=== PATIENT | male | born 1995 | race American Indian/Alaskan Native ===

== ENCOUNTER 2018-12-01 09:07 | Emergency (ER) | payer OTHER, SELFPAY ==
[2018-12-01] MEDS ORDERED: LIDOCAINE 1% W/EPI 1:100,000 MDV 50 ML VIAL ONE (10:08)
--- NOTE | 2018-12-01 10:41 | EDPHYS ---
Physician Documentation [facility] Name: Bob Rowan Age: 23 yrs Sex: Male : 1995 Arrival Date: 12/01/2018 Time: 09:10 Bed 16 Private MD: ED Physician Dillon Quiñones HPI: 12/01 10:23 This 23 yrs old Male presents to ER via Ambulatory with complaints of Abscess. gs 10:23 The patient presents with an abscess of the chin, The patient presents with cellulitis gs of the chin. 10:28 Description: The affected area is approximately 3 cm(s), confluent, draining, gs erythematous, fluctuant. Onset: The symptoms/episode began/occurred gradually, 2 day(s) ago. Possible cause(s): unknown. Associated signs and symptoms: Pertinent negatives: fever. Severity of symptoms: At their worst the symptoms were severe, in the emergency department the symptoms are unchanged. The patient has experienced similar episodes in the past, a few times, but today's symptoms are worse. The patient has been recently seen by a physician: suman yesterday, 1 day(s) ago. Historical: - Allergies: 09:45 No Known Allergies; iw - Home Meds: 09:45 Genvoya [phone] mg oral tab 1 tab once daily [Active]; iw - PMHx: 09:45 HIV; iw - PSHx: 09:45 Tonsillectomy; iw - Immunization history:: Adult Immunizations up to date. - Social history:: Smoking status: Patient/guardian denies using tobacco. - Ebola Screening: : Patient negative for fever greater than or equal to 101.5 degrees Fahrenheit, and additional compatible Ebola Virus Disease symptoms. ROS: 10:28 All other systems are negative. gs Exam: 10:28 Eyes: Pupils equal round and reactive to light, extra-ocular motions intact. Lids and gs lashes normal. Conjunctiva and sclera are non-icteric and not injected. Cornea within normal limits. Periorbital areas with no swelling, redness, or edema. ENT: Nares patent. No nasal discharge, no septal abnormalities noted. Tympanic membranes are normal and external auditory canals are clear. Oropharynx with no redness, swelling, or masses, exudates, or evidence of obstruction, uvula midline. Mucous membranes moist. Neck: Trachea midline, no thyromegaly or masses palpated, and no cervical lymphadenopathy. Supple, full range of motion without nuchal rigidity, or vertebral point tenderness. No Meningismus. Chest/axilla: Normal chest wall appearance and motion. Nontender with no deformity. No lesions are appreciated. Cardiovascular: Regular rate and rhythm with a normal S1 and S2. No gallops, murmurs, or rubs. Normal PMI, no JVD. No pulse deficits. Respiratory: Lungs have equal breath sounds bilaterally, clear to auscultation and percussion. No rales, rhonchi or wheezes noted. No increased work of breathing, no retractions or nasal flaring. Abdomen/GI: Soft, non-tender, with normal bowel sounds. No distension or tympany. No guarding or rebound. No evidence of tenderness throughout. Back: No spinal tenderness. No costovertebral tenderness. Full range of motion. MS/ Extremity: Pulses equal, no cyanosis. Neurovascular intact. Full, normal range of motion. Neuro: Awake and alert, GCS 15, oriented to person, place, time, and situation. Cranial nerves II-XII grossly intact. Motor strength 5/5 in all extremities. Sensory grossly intact. Cerebellar exam normal. Normal gait. 10:28 Constitutional: The patient appears alert, awake. 10:28 Head/face: Noted is erythema, that is moderate, swelling, tenderness, of the chin, ABSCESS. 10:28 Skin: abscess, that is small, of the chin, with drainage, with fluctuance, with induration, with surrounding cellulitis. Vital Signs: 09:43 BP 125 / 86; Pulse 97; Resp 16; Temp 98.7(O); Pulse Ox 100% on R/A; Weight 68.04 kg; iw Height 5 ft. 9 in. (175.26 cm); Pain 5/10; 10:43 BP 129 / 90; Pulse 94; Resp 17; Temp 98.8; Pulse Ox 100% on R/A; Pain 4/10; rb1 09:43 Body Mass Index 22.15 (68.04 kg, 175.26 cm) iw Procedures: 10:28 I \T\ D: Incision and drainage was performed for an abscess of the chin Prepped with gs Betadine, Anesthetized with 3 ml's 1% Lidocaine w/ Epi. Incised with #15 blade. Drained small amount purulent fluid. serosanguinous fluid. Loculations removed. Packed with iodoform gauze, Dressing: sterile 4x4 gauze, the patient tolerated the procedure well. MDM: 09:43 Patient medically screened. gs 10:28 Differential diagnosis: abscess, cellulitis. Data reviewed: vital signs, nurses notes. gs Response to treatment: the patient's symptoms have mildly improved after treatment, and as a result, I will discharge patient. Administered Medications: 09:58 Drug: Lidocaine-Epinephrine -1%: (1:100,000) 3 ml Volume: 20 ml; Route: Infiltration; rb1 11:00 Drug: [employer] 10 mg-325 mg 1 tabs Route: PO; rb1 11:03 Follow up: Response: Medication administered at discharge. rb1 Disposition: 12/01/18 10:41 Discharged to Home. Impression: Cutaneous abscess of face. - Condition is Stable. - Discharge Instructions: Skin Abscess, Incision and Drainage. - Prescriptions for Tylenol- Codeine #4 300-60 mg Oral Tablet - take 1 tablet by ORAL route every 6 hours As needed; 10 tablet. - Work release form, Medication Reconciliation Form, Thank You Letter, Antibiotic Education, Prescription Opioid Use form. - Follow up: Private Physician; When: 1 - 2 days; Reason: Re-evaluation by your physician. Signatures: Marium Wakefield, RN RN iw Kristina Nunez RN RN rb1 Dillon Quiñones MD MD Corrections: (The following items were deleted from the chart) 11:06 10:41 12/01/2018 10:41 Discharged to Home. Impression: Cutaneous abscess of face. rb1 Condition is Stable. Forms are Medication Reconciliation Form, Thank You Letter, Antibiotic Education, Prescription Opioid Use. Follow up: Private Physician; When: 1 - 2 days; Reason: Re-evaluation by your physician. gs
--- NOTE | 2018-12-01 10:41 | ER ---
Nurse's Notes [facility] Name: Bob Rowan Age: 23 yrs Sex: Male : 1995 Arrival Date: 12/01/2018 Time: 09:10 Bed 16 Private MD: Diagnosis: Cutaneous abscess of face Presentation: 12/01 09:30 Presenting complaint: Patient states: white sores to chin X 1 week, thought they were iw just ingrown hairs, chin became hard and swollen yesterday, was seen at [facility] and was put on antibiotics (Bactrim) today swelling is worse and now has increasing redness. Transition of care: patient was not received from another setting of care. Onset of symptoms was November 24, 2018. Risk Assessment: Do you want to hurt yourself or someone else? Patient reports no desire to harm self or others. Initial Sepsis Screen: Does the patient meet any 2 criteria? No. Patient's initial sepsis screen is negative. Does the patient have a suspected source of infection? No. Patient's initial sepsis screen is negative. Care prior to arrival: None. 09:30 Method Of Arrival: Ambulatory iw 09:30 Acuity: VICTOR MANUEL 3 iw Historical: - Allergies: 09:45 No Known Allergies; iw - Home Meds: 09:45 Genvoya [phone] mg oral tab 1 tab once daily [Active]; iw - PMHx: 09:45 HIV; iw - PSHx: 09:45 Tonsillectomy; iw - Immunization history:: Adult Immunizations up to date. - Social history:: Smoking status: Patient/guardian denies using tobacco. - Ebola Screening: : Patient negative for fever greater than or equal to 101.5 degrees Fahrenheit, and additional compatible Ebola Virus Disease symptoms. Screenin:30 Abuse screen: Denies threats or abuse. Nutritional screening: No deficits noted. rb1 Tuberculosis screening: No symptoms or risk factors identified. Fall Risk None identified. Assessment: 09:30 General: Appears uncomfortable, Behavior is calm, cooperative, Denies fever. Pain: rb1 Complains of pain in chin Pain currently is 10 out of 10 on a pain scale. Neuro: Level of Consciousness is awake, alert, obeys commands, Oriented to person, place, time, situation. Cardiovascular: Capillary refill < 3 seconds is brisk in bilateral fingers. Respiratory: Airway is patent Respiratory effort is even, unlabored, Respiratory pattern is regular, symmetrical. GI: Reports nausea. : No signs and/or symptoms were reported regarding the genitourinary system. Derm: Skin is dry, Skin is normal, Skin temperature is warm. 10:30 Reassessment: Patient appears in no apparent distress at this time. Patient and/or rb1 family updated on plan of care and expected duration. Pain level reassessed. Patient is alert, oriented x 3, equal unlabored respirations, skin warm/dry/pink. Mother at bedside. Vital Signs: 09:43 BP 125 / 86; Pulse 97; Resp 16; Temp 98.7(O); Pulse Ox 100% on R/A; Weight 68.04 kg; iw Height 5 ft. 9 in. (175.26 cm); Pain 5/10; 10:43 BP 129 / 90; Pulse 94; Resp 17; Temp 98.8; Pulse Ox 100% on R/A; Pain 4/10; rb1 09:43 Body Mass Index 22.15 (68.04 kg, 175.26 cm) iw ED Course: 09:10 Patient arrived in ED. tw3 09:26 Kristina Nunez, RN is Primary Nurse. rb1 09:28 Dillon Quiñones MD is Attending Physician. gs 09:30 Patient has correct armband on for positive identification. Bed in low position. Call rb1 light in reach. Side rails up X 1. Pulse ox on. NIBP on. 09:43 Triage completed. iw 09:43 Arm band placed on. iw 11:05 No provider procedures requiring assistance completed. Patient did not have IV access rb1 during this emergency room visit. Administered Medications: 09:58 Drug: Lidocaine-Epinephrine -1%: (1:100,000) 3 ml Volume: 20 ml; Route: Infiltration; rb1 11:00 Drug: Topping 10 mg-325 mg 1 tabs Route: PO; rb1 11:03 Follow up: Response: Medication administered at discharge. rb1 Outcome: 10:41 Discharge ordered by . gs 11:05 Discharged to home ambulatory, with family. rb1 11:05 Condition: stable 11:05 Discharge instructions given to patient, Instructed on discharge instructions, follow up and referral plans. medication usage, Demonstrated understanding of instructions, follow-up care, medications, Prescriptions given X 1. 11:06 Patient left the ED. rb1 Signatures: Marium Wakefield RN RN iw Kristina Nunez RN RN rb1 Anastasia Rosario tw3 Dillon Quiñones MD MD
[2018-12-01] MEDS ORDERED: HYDROCODONE/APAP 10/325 TAB ONE (11:10)
== END 2018-12-01 11:06 | disposition home or self-care (01) ==
LOC: ER 09:07
PROC: 0J910ZZ Drainage of Face Subcutaneous Tissue and Fascia, Open Approach (ICD-10-PCS; principal; 2018-12-01)
DX: L02.01 Cutaneous abscess of face (principal); Z21 Asymptomatic human immunodeficiency virus [HIV] infection status
CPT/HCPCS: 99283

== ENCOUNTER 2018-12-02 12:38 | Inpatient (IN) | payer OTHER, SELFPAY ==
[2018-12-02 13:29] LABS: Absolute Lymphocytes (CBC) 2.1 K/uL (0.7-4.9); Absolute Monocytes 1.1 K/uL (0.1-1.3); Absolute Neutrophil 8.6 K/uL (1.8-8.0); Basophils % 0.5 % (0-1.3); Eosinophils % 0.6 % (0-4.4); Lymphocytes % 17.4 % (15.3-44.8); MPV 7.1 fL (7.6-11.3); Monocytes % 9.5 % (3.3-12.3); RBC Red Blood Cell Count 5.68 M/uL (4.33-5.43)
[2018-12-02] MEDS ORDERED: VANCOMYCIN/NS 1 gm 1 GM/250 ML BAG IV ONE (13:30)
[2018-12-02] MEDS ORDERED: NA CHLORIDE 0.9% 1,000 ML ONE (13:38)
[2018-12-02] MEDS ORDERED: CLINDAMYCIN 600MG/D5W 600 MG/50 ML BAG IV ONE (13:38)
[2018-12-02] MEDS ORDERED: DIPHENHYDRAMINE 50 MG/ML VIAL ONE (13:38)
[2018-12-02 13:40] LABS: Potassium 3.9 mmol/L (3.5-5.1)
--- NOTE | 2018-12-02 14:19 | ER ---
Nurse's Notes [facility] Name: Bob Rowan Age: 23 yrs Sex: Male : 1995 Arrival Date: 12/02/2018 Time: 12:39 Bed 5 Private MD: Diagnosis: Cellulitis of face Presentation: 12/02 12:48 Presenting complaint: Patient states: "I was here yesterday and they drained the aa5 abscess and I've been taking the antibiotics but the swelling to my lower lip and my chin is getting worse". 12:48 Transition of care: patient was not received from another setting of care. Onset of aa5 symptoms was 2018. Risk Assessment: Do you want to hurt yourself or someone else? Patient reports no desire to harm self or others. Care prior to arrival: None. 12:48 Acuity: VICTOR MANUEL 3 aa5 12:48 Method Of Arrival: Ambulatory aa5 12:48 Initial Sepsis Screen: Does the patient meet any 2 criteria? Yes Does the patient have hj a suspected source of infection? Yes: Skin breakdown/wound. Triage Assessment: 12:48 General: Appears in no apparent distress. uncomfortable, Behavior is calm, cooperative, hj appropriate for age. Pain: Complains of pain in face and mouth. 12:48 EENT: Reports pain. Neuro: Level of Consciousness is awake, alert, obeys commands, hj Oriented to person, place, time, situation, Appropriate for age. Cardiovascular: Capillary refill < 3 seconds Patient's skin is warm and dry. Respiratory: Airway is patent Respiratory effort is even, unlabored, Respiratory pattern is regular, symmetrical. GI: No signs and/or symptoms were reported involving the gastrointestinal system. : No signs and/or symptoms were reported regarding the genitourinary system. Derm: No signs and/or symptoms reported regarding the dermatologic system. Derm: abscess in lips and face. Musculoskeletal: No signs and/or symptoms reported regarding the musculoskeletal system. Historical: - Allergies: 12:50 No Known Allergies; aa5 - Home Meds: 12:50 Genvoya [phone] mg Oral tab 1 tab once daily [Active]; aa5 - PMHx: 12:50 HIV; aa5 - PSHx: 12:50 Tonsillectomy; aa5 - Immunization history:: Flu vaccine is up to date. - Social history:: Smoking status: Patient/guardian denies using tobacco, Patient/guardian denies using alcohol, street drugs, The patient lives with family. - Ebola Screening: : No symptoms or risks identified at this time. - Family history:: not pertinent, pertinent for. Screenin:48 Abuse screen: Denies threats or abuse. Denies injuries from another. Nutritional hj screening: No deficits noted. Tuberculosis screening: No symptoms or risk factors identified. Fall Risk None identified. Assessment: 12:48 Reassessment: see frederick for assessment;. hj 13:30 Reassessment: Patient and/or family updated on plan of care and expected duration. Pain hj level reassessed. Patient is alert, oriented x 3, equal unlabored respirations, skin warm/dry/pink. awaiting results and POC:. 14:30 Reassessment: Patient and/or family updated on plan of care and expected duration. Pain hj level reassessed. Patient is alert, oriented x 3, equal unlabored respirations, skin warm/dry/pink. awaiting room assignement; for admit;. 15:30 Reassessment: Patient and/or family updated on plan of care and expected duration. Pain hj level reassessed. Patient is alert, oriented x 3, equal unlabored respirations, skin warm/dry/pink. Vital Signs: 12:50 BP 139 / 90; Pulse 120; Resp 18 S; Temp 98.3(O); Pulse Ox 99% on R/A; Weight 68.04 kg aa5 (R); Height 5 ft. 9 in. (175.26 cm) (R); Pain 7/10; 13:30 BP 135 / 89; Pulse 118; Resp 18; Pulse Ox 100% on R/A; hj 14:20 BP 131 / 91; Pulse 120; Resp 18; Pulse Ox 100% on R/A; hj 12:50 Body Mass Index 22.15 (68.04 kg, 175.26 cm) aa5 ED Course: 12:39 Patient arrived in ED. as 12:48 Arm band placed on Patient placed in an exam room, on a stretcher. aa5 12:48 Patient has correct armband on for positive identification. Placed in gown. Bed in low hj position. Call light in reach. Side rails up X 1. Adult w/ patient. 12:49 Vickie Schmitt MD is Attending Physician. ma2 12:50 Yimi Bocanegra RN is Primary Nurse. hj 12:56 Triage completed. aa5 13:21 Initial lab(s) drawn, by me, sent to lab. Inserted saline lock: 20 gauge in right em1 forearm, using aseptic technique. Blood collected. 14:18 Zoila Weber MD is Hospitalizing Provider. ma2 15:01 Wound Culture Sent. hj 15:02 Patient moved to [place] via wheelchair. kw1 15:13 CT completed. Patient tolerated procedure well. Patient moved back from [place]. nj 15:47 No provider procedures requiring assistance completed. Patient admitted, IV remains in hj place. intact. Administered Medications: 13:30 Drug: NS 0.9% 1000 ml Route: IV; Rate: 1 bolus; Site: right antecubital; sg 14:45 Follow up: IV Status: Completed infusion; IV Intake: 1000ml hj 13:30 Drug: Clindamycin 600 mg Route: IVPB; Infused Over: 30 mins; Site: right antecubital; sg 14:00 Follow up: IV Status: Completed infusion; IV Intake: 50ml hj 13:30 Drug: Benadryl 50 mg Route: IVP; Site: right antecubital; sg 14:06 Follow up: Response: No adverse reaction hj 14:04 Drug: vancoMYCIN 1 grams Route: IVPB; Infused Over: 2 hrs; Site: right antecubital; hj 15:50 Follow up: IV Status: Infusion continued upon admission hj Intake: 14:00 IV: 50ml; Total: 50ml. hj 14:45 IV: 1000ml; Total: 1050ml. Outcome: 14:18 Decision to Hospitalize by Provider. ma2 15:46 Admitted to Med/surg accompanied by tech, family with patient, via wheelchair, room sg 401, with chart, Report called to TIM Conteh 15:46 Condition: stable 15:46 Instructed on the need for admit, safety practices, Demonstrated understanding of instructions. 15:48 Admitted to Tele accompanied by tech, family with patient, via stretcher, room 401, hj with chart, Report called to Rajiv 15:48 Condition: stable 15:53 Patient left the ED. Signatures: Gregory Wolfe RN RN Becka Webster Eric em1 Clari Abarca, TIM RN aa5 Yimi Bocanegra RN RN hj Kory Taylor Kimberly kw1 Vickie Schmitt MD MD ma2
--- NOTE | 2018-12-02 14:19 | EDPHYS ---
Physician Documentation [facility] Name: Bob Rowan Age: 23 yrs Sex: Male : 1995 Arrival Date: 12/02/2018 Time: 12:39 Bed 5 Private MD: ED Physician Vickie Schmitt HPI: 12/02 14:10 This 23 yrs old Male presents to ER via Ambulatory with complaints of Facial Swelling. ma2 14:10 The patient or guardian reports pain, swelling. The complaints affect the right jaw. ma2 Onset: The symptoms/episode began/occurred gradually, 3 day(s) ago. Associated signs and symptoms: Pertinent negatives: headache, injury. Severity of symptoms: At their worst the symptoms were moderate, in the emergency department the symptoms are unchanged. The patient has not experienced similar symptoms in the past. hx of HIV here with right cheek cellulitis and abscess that was drained yesterday, has been on antibiotics for 3 days, here today with worsening of the redness and swelling x 1 day gradual no sob difficulty swallowing or airway issues . Historical: - Allergies: 12:50 No Known Allergies; aa5 - Home Meds: 12:50 Genvoya [phone] mg Oral tab 1 tab once daily [Active]; aa5 - PMHx: 12:50 HIV; aa5 - PSHx: 12:50 Tonsillectomy; aa5 - Immunization history:: Flu vaccine is up to date. - Social history:: Smoking status: Patient/guardian denies using tobacco, Patient/guardian denies using alcohol, street drugs, The patient lives with family. - Ebola Screening: : No symptoms or risks identified at this time. - Family history:: not pertinent, pertinent for. ROS: 14:10 Constitutional: Negative for fever, chills, and weight loss. ma2 14:10 Cardiovascular: Negative for chest pain, palpitations, and edema, Respiratory: Negative for shortness of breath, cough, wheezing, and pleuritic chest pain, Abdomen/GI: Negative for abdominal pain, nausea, diarrhea, and constipation, : Negative for injury, bleeding, discharge, and swelling, MS/Extremity: Negative for injury and deformity, Neuro: Negative for headache, weakness, numbness, tingling, and seizure, Psych: Negative for depression, anxiety, suicide ideation, homicidal ideation, and hallucinations. 14:10 ENT: Positive for facial swelling, Negative for hearing loss, Teeth pain tinnitus, nasal discharge, rhinorrhea, sinus congestion. Exam: 14:10 Constitutional: This is a well developed, well nourished patient who is awake, alert, ma2 and in no acute distress. Eyes: Pupils equal round and reactive to light, extra-ocular motions intact. Lids and lashes normal. Conjunctiva and sclera are non-icteric and not injected. Cornea within normal limits. Periorbital areas with no swelling, redness, or edema. ENT: Nares patent. No nasal discharge, no septal abnormalities noted. Tympanic membranes are normal and external auditory canals are clear. Oropharynx with no redness, swelling, or masses, exudates, or evidence of obstruction, uvula midline. Mucous membranes moist. Chest/axilla: Normal chest wall appearance and motion. Nontender with no deformity. No lesions are appreciated. Cardiovascular: Regular rate and rhythm with a normal S1 and S2. No gallops, murmurs, or rubs. Normal PMI, no JVD. No pulse deficits. Respiratory: Lungs have equal breath sounds bilaterally, clear to auscultation and percussion. No rales, rhonchi or wheezes noted. No increased work of breathing, no retractions or nasal flaring. Abdomen/GI: Soft, non-tender, with normal bowel sounds. No distension or tympany. No guarding or rebound. No evidence of tenderness throughout. Back: No spinal tenderness. No costovertebral tenderness. Full range of motion. Skin: Warm, dry with normal turgor. Normal color with no rashes, no lesions, and no evidence of cellulitis. MS/ Extremity: Pulses equal, no cyanosis. Neurovascular intact. Full, normal range of motion. 14:10 Head/face: Noted is swelling, right cheek swelling and induration including right lower lip, airway is open, floor of mouth is soft with no pain, tenderness or abscess, tongue and uvula and oropharynx wnl, n fluctuance appreciated . Vital Signs: 12:50 BP 139 / 90; Pulse 120; Resp 18 S; Temp 98.3(O); Pulse Ox 99% on R/A; Weight 68.04 kg aa5 (R); Height 5 ft. 9 in. (175.26 cm) (R); Pain 7/10; 13:30 BP 135 / 89; Pulse 118; Resp 18; Pulse Ox 100% on R/A; hj 14:20 BP 131 / 91; Pulse 120; Resp 18; Pulse Ox 100% on R/A; hj 12:50 Body Mass Index 22.15 (68.04 kg, 175.26 cm) aa5 MDM: 12:49 Patient medically screened. [facility] 14:10 Differential diagnosis: cellulitis, no abscess. Data reviewed: vital signs, nurses ma2 notes. Counseling: I had a detailed discussion with the patient and/or guardian regarding: the historical points, exam findings, and any diagnostic results supporting the discharge/admit diagnosis, the presence of at least one elevated blood pressure reading (>120/80) during this emergency department visit, the need for further work-up and treatment in the hospital. Response to treatment: the patient's symptoms have mildly improved after treatment. ED course: given immunocompromized, SIRS and worsening of cellulitis despite outpatient antibiotics will admit for iv antibiotics airway is intact no Mike angina or airway compromise . 14:10 Physician consultation: Zoila Weber MD. [facility] 15:48 ED course: has [address], I called dr. mariee who recommends plastic consult. ma2 I called dr. West who is oncall today and left a voice note on his phone . 17:38 ED course: plastic surgeon oncall dr. Irvin called back and advised that he is [facility] unable to see the patient today or tomorrow as he is not in town. No ENT available today in our hospital, given the presence of 1 cm abscess patient needs to be transferred to higher level of care emergently as no facial surgeon available to see him today or tomorrow.. this has been discussed with dr. Weber . 12/02 13:05 Order name: CBC with Diff; Complete Time: 13:49 [facility] 12/02 13:05 Order name: BMP; Complete Time: 13:49 [facility] 12/02 13:05 Order name: Lactate; Complete Time: 13:49 [facility] 12/02 14:55 Order name: Wound Culture 12/02 14:59 Order name: CT Facial Bones W/ Con \T\ Mpr [facility] 12/02 15:37 Order name: CT; Complete Time: 15:44 EDMS Administered Medications: 13:30 Drug: NS 0.9% 1000 ml Route: IV; Rate: 1 bolus; Site: right antecubital; sg 14:45 Follow up: IV Status: Completed infusion; IV Intake: 1000ml 13:30 Drug: Clindamycin 600 mg Route: IVPB; Infused Over: 30 mins; Site: right antecubital; sg 14:00 Follow up: IV Status: Completed infusion; IV Intake: 50ml hj 13:30 Drug: Benadryl 50 mg Route: IVP; Site: right antecubital; sg 14:06 Follow up: Response: No adverse reaction hj 14:04 Drug: vancoMYCIN 1 grams Route: IVPB; Infused Over: 2 hrs; Site: right antecubital; hj 15:50 Follow up: IV Status: Infusion continued upon admission Disposition: 12/02/18 14:18 Hospitalization ordered by Zoila Weber for Observation. Preliminary diagnosis is Cellulitis of face. - Bed requested for Telemetry/MedSurg (observation). - Status is Observation. hj - Condition is Stable. - Problem is new. - Symptoms are unchanged. UTI on Admission? No Signatures: Dispatcher [employer] EDMS KarlaClarisse monique Gregory Duncan RN RN Clari Abarca RN RN aa5 Yimi Bocanegra RN RN Vickie Schmitt MD MD ma2 Corrections: (The following items were deleted from the chart) 15:28 14:18 Hospitalization Ordered by Zoila Weber MD for Observation. Preliminary diagnosis bd is Cellulitis of face. Bed requested for Telemetry/MedSurg (observation). Status is Observation. Condition is Stable. Problem is new. Symptoms are unchanged. UTI on Admission? No. ma2 15:53 15:28 12/02/2018 14:18 Hospitalization Ordered by Zoila Weber MD for Observation. hj Preliminary diagnosis is Cellulitis of face. Bed requested for Telemetry/MedSurg (observation). Status is Observation. Condition is Stable. Problem is new. Symptoms are unchanged. UTI on Admission? No. bd
--- NOTE | 2018-12-02 15:37 | RAD REPORT ---
EXAM DESCRIPTION: CTFacial Bones W Con Mpr12/02/2018 3:13 pm CLINICAL HISTORY: Right facial pain and swelling COMPARISON: None. TECHNIQUE: Computed axial tomography of the face obtained with coronal and sagittal reconstruction. 50 cc Isovue-[address] scans are performed using dose optimization technique as appropriate and may include automated exposure control or mA/KV adjustment according to patient size. FINDINGS: 10 millimeter low-density areas present within the subcutaneous tissues anterior to the ri ght mandible. There is a defect involving the skin at this region presumably secondary to previous in strumentation. Diffuse edema is present within subcutaneous tissues. The parotid and submandibular glands appear unremarkable. Visualized thyroid gland unremarkable. The parapharyngeal fat is clear. Fluid within the sinuses and mastoids is not noted IMPRESSION: A 10 millimeter low-density area within the subcutaneous tissues anterior to the right m andible probably representing residual abscess. Diffuse edema within the subcutaneous tissues consist ent with cellulitis. .
[2018-12-02] MEDS ORDERED: ACETAMINOPHEN 500 MG TAB PO PRN (16:19)
[2018-12-02] MEDS ORDERED: VANCOMYCIN/NS 1 gm 1 GM/250 ML BAG IVPB SCH (16:19)
[2018-12-02] MEDS ORDERED: ONDANSETRON 4 MG/2 ML VIAL IV PRN (16:19)
[2018-12-02] MEDS: HYDROCODONE/APAP 5/325 MG TAB PO PRN ×2 (16:45→22:18)
[2018-12-02 19:16] LABS: Urine Appearance CLEAR; Urine Bilirubin NEGATIVE (NEG); Urine Blood NEGATIVE (NEG); Urine Color YELLOW; Urine Glucose NEGATIVE (NEG); Urine Protein NEGATIVE (NEG); Urine Specific Gravity >=1.030 (1.005-1.030)
[2018-12-02 19:26] LABS: Urine Bacteria <20 /HPF (NONE SEEN); Urine Culture Reflex Order NOT NEEDED; Urine RBC NONE SEEN /HPF (NONE SEEN)
[2018-12-02] MEDS ORDERED: VANCOMYCIN 1.25 GM in NA CHLORIDE 0.9% 250 ML IVPB SCH (20:00)
[2018-12-02] MEDS ORDERED: VANCOMYCIN 500 MG/VIAL ONE (20:14)
[2018-12-02] MEDS ORDERED: VANCOMYCIN 1 GM/VIAL ONE (20:14)
[2018-12-02] MEDS ORDERED: NA CHLORIDE 0.9% 250 ML ONE (20:16)
[2018-12-02] MEDS ORDERED: NA CHLORIDE 0.9% 1,000 ML IV SCH (22:00)
--- NOTE | 2018-12-03 01:41 | HP ---
Date of Admission: 12/02/2018 Chief Complaint: Facial swelling, failed outpatient treatment. History Of Present Illness: The patient is a 23-year-old male with past medical history of HIV, on antiretrovirals, does not remember his last CD4 count , follows up regularly in the [facility], who was in his usual state of health until several days prior to admission. The patient had what seems to be furuncles on his face, perhaps ingrown hair and patient popped and drained the abscess on his own, appeared to become infected. The patient came into the ER, had bedside debridement by ER physician yesterday. He was discharged on antibiotics. The patient has taken couple of doses since then. However, he experienced chills, subjective fevers and worsening swelling. The patient's dressing was also filled with pustular drainage; therefore, patient came back to the ER for further evaluation. His symptoms were constant, moderate, progressively worsening. In the ER, the patient was tachycardic, heart rate of 120. His temperature was 98.3. Workup revealed a white count of 11.9. The patient was given IV antibiotics and 1 L normal saline bolus and then referred for admission. When seen in the ER, he was awake, alert, oriented x3, in some mild distress. Past Medical History: HIV, on antiretroviral. Past Surgical History: None. Allergies: NO KNOWN DRUG ALLERGIES. Medications: The patient takes 4-drug combo antiretroviral. Social History: The patient denies any tobacco use or alcohol use. No illicit drug use. Family History: Positive for diabetes, cancer and high blood pressure. Review of Systems: Ten-point system reviewed, negative except as per HPI. Physical Examination: Vital Signs: Temperature 98.3, heart rate 120, blood pressure 139/90, respirations 18, O2 99% on room air. General: Awake, alert, oriented x3, in some mild distress, ill-appearing male. HEENT: Normocephalic, atraumatic. PERRLA. EOMI. Oropharynx is not able to be completely examined due to the patient's inability to open his mouth completely due to swelling. However, there are no exudates seen upon examination. Dentition is normal. Moist mucous membranes. Conjunctivae anicteric. Neck: Supple. Trachea midline. CV: S1, S2. Sinus tachycardia. Peripheral pulses present. Respiratory: Moving air well bilaterally. No wheezing or stridor. No use of accessory muscles. Gastrointestinal: Abdomen is soft, nontender, nondistended. Positive bowel sounds. Extremities: No clubbing, cyanosis, or edema. Neuro: Cranial nerves grossly intact. Unable to properly examine due to facial swelling. No focal neurological deficits. Speech is altered, but comprehensible. Skin: Anterior face and lips swollen. No fluctuance. The patient does have 2 large abscesses that seem to have been opened. No drainage. Psych: Mood is okay. Affect is full. Insight and judgment are good. Laboratory Data: WBC 11.9, H and H 17.1 and 50, platelets 269, neutrophils 72% . Sodium 139, potassium 3.9, chloride 105, CO2 27, BUN 11, creatinine 1.05, glucose 91, lactate 0.9, calcium 9.2. Assessment And Plan: A 23-year-old male with: 1. Facial cellulitis with failed outpatient treatment. The patient had bedside incision and drainage and was sent out on antibiotics yesterday. We will consult Surgery, obtain CT facial bones for possible abscess that may need drainage. The patient does not have any airway compromise, no difficulty swallowing. We will start on IV vancomycin, obtain wound cultures. 2. Human immunodeficiency virus, on antiretrovirals. We will continue treatment. CD4 count unknown. The patient follows with [facility]. 3. Systemic inflammatory response syndrome. The patient is tachycardic, tachypneic, elevated white blood cell count. Source of infection is facial cellulitis. The patient has been bolused 1 L normal saline. We will continue with IV fluids and monitor for signs of sepsis. 4. Deep vein thrombosis prophylaxis with SCDs, no chemical anticoagulation due to possible incision and drainage. Plan: We will admit the patient to Med-Surg, place as inpatient. Length of stay greater than 2 midnights. ADDENDUM: CT shows 1cm abscess. Surgery called by ED, they recommend plastic surgery. - non available. Transfer to [facility]. ADDENDUM: Patient accepted to [facility]. Transfer once bed available /ERLIN Voice ID: [id number] [email or web address]
[2018-12-03] MEDS ORDERED: VANCOMYCIN 1.25 GM in NA CHLORIDE 0.9% 250 ML IVPB SCH (05:00)
== END 2018-12-03 02:15 | disposition short-term general hospital (02) | DRG 603 ==
LOC: ER 12:38 → ERHOLD 14:26 → 4TH 15:46
PROVIDERS: ADMIT Family Medicine; ATTEND Family Medicine
DX: L03.211 Cellulitis of face (principal); Z21 Asymptomatic human immunodeficiency virus [HIV] infection status
CPT/HCPCS: 36415; 70487; 76377; 80048; 81001; 83605; 85025; 87070; 87077; 87186; 87205; 94760; 96365; 96367; 96375; 99285; J3370; J7030